=== PATIENT | female | born 1985 | race Caucasian/White ===

== ENCOUNTER → 2020-03-02 23:52 | Outpatient (BNVA) | payer OTHER, SELFPAY | PROVIDERS: Family Provider Urology; PCP Urology; Visit Provider Internal Medicine | DX: F32.9 Major depressive disorder, single episode, unspecified (principal); E11.9 Type 2 diabetes mellitus without complications | CPT/HCPCS: 83550; 85025 ==

== ENCOUNTER → 2021-04-01 17:35 | Outpatient (BNVA) | payer OTHER, SELFPAY | PROVIDERS: Family Provider Urology; PCP Urology; Visit Provider Nurse Practitioner | DX: Z20.822 Contact with and (suspected) exposure to COVID-19 (principal) | CPT/HCPCS: 87426; 87635 ==

== ENCOUNTER 2022-11-11 06:11 | Outpatient (CLI) | payer OTHER, SELFPAY ==
--- NOTE | 2022-11-11 | USCV_ITS ---
Lilia Bolaños Age: 36 Gender: F : 1985 Exam Date: 11/11/2022 06:45 Ordering Phys: Johnathan Monge MD Technologist: CYRIL Exam Location: [facility] – [place] Indication: HTN Aortic Velocity @ SMA (cm/s) 94.6 RIGHT KIDNEY LEFT KIDNEY Velocity (cm/s) Velocity (cm/s) Sys/Barr Sys/Barr Resistive Index Resistive Index 50.4 / 20.7 0.59 Proximal Renal Artery 52.1 / 24.8 0.52 39.7 / 20.7 0.48 Mid Renal Artery 42.1 / 19.8 0.53 41.3 / 18.2 0.56 Distal Renal Artery 47.1 / 19.0 0.60 55.4 / 26.4 0.52 Hilar 88.4 / 33.9 0.62 78.6 / 36.2 0.54 Upper Pole 110.0 / 52.6 0.52 123.4 / 44.4 0.64 Mid Pole 92.6 / 38.7 0.58 80.2 / 30.6 0.62 Lower Pole 111.6 / 43.0 0.61 0.50 Renal Aortic Ratio 0.52 Accleration Index (cm/sec2) 241.00 Hilar 441.00 1809.0 Upper Pole 1003.0 0 0 394.00 Mid Pole 829.00 428.00 Lower Pole 396.00 122.5 Kidney Length (mm) 102.8 FINDINGS No evidence of abdominal aortic aneurysm. There is no evidence of hemodynamically significant right renal artery stenosis. There is no evidence of hemodynamically significant left renal artery stenosis. Normal size kidneys. Right upper pole 8 mm cyst. CONCLUSIONS No sonographic evidence of renal aortic stenosis or aneurysm. Dr. Yolanda Trujillo DO (Electronically Signed) Final Date: 11 November 2022 07:21 S
== END 2022-11-11 06:12 | disposition home or self-care (01) ==
PROVIDERS: PCP Internal Medicine; Visit Provider Internal Medicine
DX: I10 Essential (primary) hypertension (principal)
CPT/HCPCS: 93975